=== PATIENT | male | born 1945 | race Caucasian/White ===

== ENCOUNTER → 2017-05-01 | Outpatient (CLI) | payer MEDICARE ==
[~2017-05-01] MED LIST: ACYC5TO15G; ACYC800 PO; ASPI325 PO; ASPI81CH; ATOR40TA PO; Aspir 8181 MG PO; CEPH500 PO; CHEMO; CLOP75 PO; Colace100 MG PO; FAMO20 PO; FAMO40; HYDACE5 PO; LEVFLO500 PO; ONDA4ODT; ONDA8 PO
[2017-05-01 14:07] LABS: BASOPHILS ABSOLUTE AUTO 0.02 K/mm3 (0.00-0.23); BASOPHILS PERCENT AUTO 1 % (0-2); EOSINOPHILS ABSOLUTE AUTO 0.07 K/mm3 (0.00-0.68); EOSINOPHILS PERCENT AUTO 2 % (0-6); Hematocrit 36.9 % (37.0-53.0); Hemoglobin 11.9 g/dL (13.5-17.5); IMMATURE GRAN ABSOLUTE AUTO 0.05 K/mm3 (0.00-0.10); IMMATURE GRAN PERCENT AUTO 1 % (0-1); LYMPHOCYTES ABSOLUTE AUTO 0.46 K/mm3 (0.84-5.20); LYMPHOCYTES PERCENT AUTO 11 % (21-46); MONOCYTES ABSOLUTE AUTO 0.04 K/mm3 (0.16-1.47); MONOCYTES PERCENT AUTO 1 % (4-13); Mean Corpuscular HGB 30.4 pg (26.0-34.0); Mean Corpuscular HGB Conc 32.2 g/dL (31.5-36.5); Mean Platelet Volume 9.8 fL (9.1-12.4); NEUTROPHILS ABSOLUTE AUTO 3.73 K/mm3 (1.96-9.15); NEUTROPHILS PERCENT AUTO 85 % (41-73); Platelet Count 73 K/mm3 (150-400); RDW Coefficient Variation 16.5 % (11.7-14.2); RDW Standard Deviation 56.6 fL (35.1-46.3); Red Blood Cell Count 3.92 M/mm3 (4.30-5.90); White Blood Cell Count 4.37 K/mm3 (4.00-11.30)
[2017-05-01 14:22] LABS: Mean Corpuscular Volume 94 fL (80-100)
== END | disposition home or self-care (01) ==
LOC: LAB 13:47
PROVIDERS: Internal Medicine Hematology & Oncology
DX: C20 Malignant neoplasm of rectum (principal); C78.6 Secondary malignant neoplasm of retroperitoneum and peritoneum; C78.00 Secondary malignant neoplasm of unspecified lung
CPT/HCPCS: 85025

== ENCOUNTER 2017-05-02 23:42 | Emergency (ER) | payer MEDICARE ==
[~2017-05-02] VITALS: Ht 170.2 cm; Wt 65.8 kg
[~2017-05-02 23:42] MED LIST changes: -ASPI81CH; -FAMO40
[2017-05-03] MEDS ORDERED: ASPI325 PO (00:16)
[2017-05-03] MEDS ORDERED: ASPI81CH (00:16)
[2017-05-03] MEDS ORDERED: FAMO40 (00:16)
== END 2017-05-03 02:17 | disposition home or self-care (01) ==
LOC: ER 23:42
DX: R04.0 Epistaxis (principal); Z88.8 Allergy status to other drugs, medicaments and biological substances; Z79.82 Long term (current) use of aspirin; Z79.899 Other long term (current) drug therapy; Z87.891 Personal history of nicotine dependence; Z85.118 Personal history of other malignant neoplasm of bronchus and lung; Z85.038 Personal history of other malignant neoplasm of large intestine
CPT/HCPCS: 99282

== ENCOUNTER 2017-10-11 09:15 | Day surgery (SDC) | payer MEDICARE ==
[~2017-10-11] VITALS: Ht 170.2 cm; Wt 78.0 kg
[~2017-10-11 09:15] MED LIST changes: +ASPI81CH; +FAMO40
== END 2017-10-11 22:49 | disposition home or self-care (01) ==
LOC: ORSCMMR 09:15 → ORD 10:30 → ORSCMMR 22:49
PROVIDERS: Internal Medicine Gastroenterology
PROC: 0DBE8ZX Excision of Large Intestine, Via Natural or Artificial Opening Endoscopic, Diagnostic (ICD-10-PCS; principal; 2017-10-11 10:30)
PROC: 0DBP8ZX Excision of Rectum, Via Natural or Artificial Opening Endoscopic, Diagnostic (ICD-10-PCS; principal; 2017-10-11 10:30)
PROC: 0DBM8ZX Excision of Descending Colon, Via Natural or Artificial Opening Endoscopic, Diagnostic (ICD-10-PCS; principal; 2017-10-11 10:30)
DX: Z85.048 Personal history of other malignant neoplasm of rectum, rectosigmoid junction, and anus (principal); D12.4 Benign neoplasm of descending colon; Z87.891 Personal history of nicotine dependence
CPT/HCPCS: 88305; J7120

== ENCOUNTER 2018-05-30 04:30 | Emergency (ER) | payer MEDICARE ==
[~2018-05-30] VITALS: Ht 162.6 cm; Wt 94.3 kg
[2018-05-30] MEDS ORDERED: BENZ100A PO (05:34)
== END 2018-05-30 05:47 | disposition home or self-care (01) ==
LOC: ER 04:30
DX: R05 Cough (principal); Z88.8 Allergy status to other drugs, medicaments and biological substances; Z79.899 Other long term (current) drug therapy; Z87.891 Personal history of nicotine dependence
CPT/HCPCS: 71046; 99283-25

== ENCOUNTER 2024-05-01 05:18 | Emergency (ER) | payer MEDICARE ==
[~2024-05-01] VITALS: Ht 170.2 cm; Wt 70.3 kg
[~2024-05-01 05:18] MED LIST changes: +BENZ100A PO
[2024-05-01 05:30] VITALS: BP 118/87
[2024-05-01 06:46] LABS: CORONAVIRUS COVID-19 AG Negative (NEGATIVE); INFLUENZA A AG Negative (NEGATIVE); INFLUENZA B AG Negative (NEGATIVE)
== END 2024-05-01 08:40 | disposition home or self-care (01) ==
LOC: ER 05:18
PROVIDERS: Emergency Medicine
DX: B34.9 Viral infection, unspecified (principal)
CPT/HCPCS: 71046; 87428-QW; 99284-25

== ENCOUNTER 2024-09-28 22:51 | Emergency (ER) | payer MEDICARE ==
[~2024-09-28] VITALS: Ht 170.2 cm; Wt 83.9 kg
[2024-09-28 23:16] LABS: BASOPHILS ABSOLUTE AUTO 0.05 K/mm3 (0.00-0.23); BASOPHILS PERCENT AUTO 1 % (0-2); EOSINOPHILS ABSOLUTE AUTO 0.14 K/mm3 (0.00-0.68); EOSINOPHILS PERCENT AUTO 2 % (0-6); Hematocrit 49.6 % (37.0-53.0); Hemoglobin 16.8 g/dL (13.5-17.5); IMMATURE GRAN ABSOLUTE AUTO 0.04 K/mm3 (0.00-0.10); IMMATURE GRAN PERCENT AUTO 0 % (0-1); LYMPHOCYTES ABSOLUTE AUTO 1.58 K/mm3 (0.84-5.20); LYMPHOCYTES PERCENT AUTO 17 % (21-46); MONOCYTES ABSOLUTE AUTO 0.48 K/mm3 (0.16-1.47); MONOCYTES PERCENT AUTO 5 % (4-13); Mean Corpuscular HGB Conc 33.9 g/dL (31.5-36.5); Mean Corpuscular Volume 90 fL (80-100); NEUTROPHILS ABSOLUTE AUTO 6.79 K/mm3 (1.96-9.15); NEUTROPHILS PERCENT AUTO 75 % (41-73); NRBC ABSOLUTE 0.00 K/mm3 (0.00-0.02); NRBC Auto 0.0 /100 WBC (0.0-0.2); Platelet Count 207 K/mm3 (150-400); RDW Coefficient Variation 12.7 % (11.7-14.2); RDW Standard Deviation 42.1 fL (35.1-46.3)
[2024-09-28 23:35] LABS: Alanine Aminotransfer (ALT/SGP 36.0 U/L (12-78); Albumin, Blood 3.8 g/dL (3.4-5.0); Albumin/Globulin Ratio 0.8 (0.8-1.8); Anion Gap 10.0 mmol/L (3-11); Aspartate Aminotrans (AST/SGOT 35.0 U/L (12-37); Bilirubin, Total 0.9 mg/dL (0.1-1.0); Blood Urea Nitrogen 17.0 mg/dL (8-24); CO2, Blood 24.0 mmol/L (21-32); Calcium, Blood 9.1 mg/dL (8.5-10.1); Chloride, Blood 106.0 mmol/L (98-108); Creatinine, Blood 0.97 mg/dL (0.60-1.20); Globulin, Blood 4.5 g/dL (2.2-4.0); Glucose, Blood 112.0 mg/dL (70-99); Potassium, Blood 4.0 mmol/L (3.5-5.5); Sodium, Blood 136.0 mmol/L (136-145); Total Protein, Blood 8.3 g/dL (6.4-8.2)
[2024-09-29] MEDS ORDERED: DiphenhydrAMINE HCl 50 MG/ML 1ML Vial IV ONE (00:15)
[2024-09-29] MEDS ORDERED: Metoclopramide HCl 5MG / ML 2ML Vial IV ONE (00:15)
[2024-09-29] MEDS ORDERED: ONDA4 PO (02:05)
[2024-09-29] MEDS ORDERED: DICY20 PO (02:05)
[2024-09-29 03:00] VITALS: BP 178/91
== END 2024-09-29 03:44 | disposition left against medical advice (07) ==
LOC: ER 22:51
PROVIDERS: Student in an Organized Health Care Education/Training Program
DX: K43.3 Parastomal hernia with obstruction, without gangrene (principal); Z43.3 Encounter for attention to colostomy; K80.20 Calculus of gallbladder without cholecystitis without obstruction; Z53.29 Procedure and treatment not carried out because of patient's decision for other reasons; Z88.8 Allergy status to other drugs, medicaments and biological substances
CPT/HCPCS: 74177; 80053; 83690; 85025; 93005; 93010; 96374-59; 96375; 99284; J1200; J2765; Q9967